=== PATIENT | male | born 2000 | race Two or more races ===

== ENCOUNTER 2023-10-20 19:21 | Emergency (ER) | payer OTHER ==
[2023-10-20 19:44] VITALS: O2SAT 99
[2023-10-20 19:56] LABS: BILIRUBIN,URINE NEGATIVE (NEGATIVE); GLUCOSE, URINE (UA) NEGATIVE (NEGATIVE); KETONES,URINE (UA) NEGATIVE (NEGATIVE); LEUKOCYTE ESTERASE, URINE NEGATIVE (NEGATIVE); NITRITE,URINE NEGATIVE (NEGATIVE); OCCULT BLOOD,URINE NEGATIVE (NEGATIVE); PROTEIN,URINE NEGATIVE (NEGATIVE); UROBILINOGEN,URINE 0.2 (NORMAL) E.U./dL (NORMAL)
[2023-10-20 20:00] LABS: CLARITY,URINE CLEAR (CLEAR)
--- NOTE | 2023-10-20 21:54 | ED Physician Documentation ---
History of Present Illness - Stated complaint Stated Complaint: - Chief complaint Chief Complaint: General - History obtained from History obtained from: Patient - Additonal information Additional information: 23yM p/w pain in testicles X 1 month. denies penile discharge, rash, lesions or pruritus. denies urinary sx. denies abdominal or back pain. PD PAST MEDICAL HISTORY - Past Medical History Past Medical History: No - Past Surgical History Past Surgical History: Yes - Present Medications Home Medications: Ambulatory Orders Medication Instructions Recorded Confirmed No Known Home Medications 10/20/23 10/20/23 - Allergies Allergies/Adverse Reactions: Allergies Allergy/AdvReac Type Severity Reaction Status Date / Time No Known Drug Allergies Allergy Verified 10/20/23 19:42 - Social History Does the pt smoke?: No Smoking Status: Never smoker Does the pt drink ETOH?: Yes ETOH Use: Wine, Beer, Liquor Does the pt have substance abuse?: No - Immunizations Immunizations are current?: Yes - POLST Patient has POLST: No PD ED PE NORMAL - Vitals Vital signs reviewed: Yes - General General: Alert and oriented X 3, No acute distress, Well developed/nourished - HEENT HEENT: Atraumatic, PERRL, EOMI - Abdomen Abdomen: Non tender, Non distended - Male Male : 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 uncircumcised penis. BL cremaster intact. ) Results - Vitals Vitals: Vital Signs - 24 hr 10/20/23 10/20/23 19:36 22:15 Temperature 36.7 C 99.3 C H Heart Rate 77 81 Respiratory 16 16 Rate Blood Pressure 132/71 H 132/83 H O2 Saturation 99 99 Oxygen O2 Source Room air - Labs Labs: Laboratory Tests 10/20/23 10/20/23 19:49 19:49 Urine Color YELLOW Urine Clarity CLEAR Urine pH 7.0 Ur Specific [place] 1.010 Urine Protein NEGATIVE Urine Glucose (UA) NEGATIVE Urine Ketones NEGATIVE Urine Occult Blood NEGATIVE Urine Nitrite NEGATIVE Urine Bilirubin NEGATIVE Urine Urobilinogen 0.2 (NORMAL) Ur Leukocyte Esterase NEGATIVE Ur Microscopic Review NOT INDICATED Urine Culture Comments NOT INDICATED Chlam trachomat DNA PCR NEGATIVE N.gonorrhoeae DNA (PCR) NEGATIVE T. vaginalis (PCR) NEGATIVE PD Medical Decision Making - ED course ED course: 23yM p/w testicular pain with negative u/a and ultrasound. sti panel ordered that he can f/u with pcp. return precautions given. Departure - Departure Disposition: 01 Home, Self Care Clinical Impression: Testicular pain, Dysuria Condition: Stable Follow-Up: Cynthia Gardner MD [Physician No Access] - Comments: You were seen in the emergency department for pain in the testicles and pain with urination. Your urine test and ultrasound were normal. STI testing was sent and you can follow up the results on your patient health portal. Please follow-up with your primary care provider and return to the emergency department if you have any new or worsening symptoms or other concerns. referral also provided to urology if this continues and you need further investigation. Forms: PCP List Discharge Date/Time: 10/20/23 22:26
--- NOTE | 2023-10-20 22:24 | Ultrasound Report ---
PROCEDURE: Testicle w/Doppler INDICATIONS: testicle pain TECHNIQUE: Real-time scanning was performed of the scrotum and testicles, with image documentation. Color and p ulse Doppler interrogation was performed of both testicles. COMPARISON: None. FINDINGS: Right: Testicle is normal in size at 4.2 x 2.2 x 3.2 cm, and homogenous in echotexture. Epididymis is normal in overall size and morphology. 5 mm epididymal head cysts are noted. No hydrocele. No vari coceles. Overlying scrotal skin is normal in thickness. Left: Testicle is normal in size at 4.1 x 2.1 x 2.7 cm, and homogeneous in echotexture. Epididymis is normal in overall size and morphology. No hydrocele. No varicoceles. Overlying scrotal skin is n ormal in thickness. Doppler: Color and pulse Doppler demonstrate normal and symmetric arterial flow in both testicles. IMPRESSION: No sonographic signs of testicular torsion or epididymitis Reviewed by: Aron Norton MD on 10/20/2023 10:23 PM PDT Approved by: Aron Norton MD on 10/20/2023 10:23 PM PDT Station ID: [id number]
[2023-10-20 22:31] VITALS: BP 132/83
[2023-10-21 02:31] LABS: CHLAMYDIA TRACHOMATIS DNA NEGATIVE (NEGATIVE); NEISSERIA GONORRHOEAE DNA NEGATIVE (NEGATIVE); TRICHOMONAS VAGINALIS DNA NEGATIVE (NEGATIVE)
== END 2023-10-20 22:26 | disposition home or self-care (01) ==
LOC: ED 19:21
DX: N50.819 Testicular pain, unspecified (principal); R30.0 Dysuria
CPT/HCPCS: 81001; 81003; 87086; 87491; 87591; 87661; 93975; 99283; 99284